=== PATIENT | male | born 1975 | race Caucasian/White ===

== ENCOUNTER 2016-10-04 19:30 | Emergency (ER) | payer OTHER ==
[~2016-10-04] VITALS: Ht 170.2 cm; Wt 63.0 kg
[2016-10-04 19:35] VITALS: Ht 170.2 cm; Wt 63.0 kg
[2016-10-04] MEDS ORDERED: NAPR-1169 PO (19:56)
[2016-10-04] MEDS ORDERED: CYCL5TAB PO (19:56)
[2016-10-04] MEDS ORDERED: KETOROLAC TROMETHAMINE 60 MG/2 ML VIAL IM STA (19:57)
[2016-10-04] MEDS ORDERED: MoRPHine SULFATE 10 MG/ML CARP/VIAL IM STA (19:57)
[2016-10-04] MEDS ORDERED: DEXAMETHASONE SOD INJ 10 MG/ML VIAL IM ONE (20:00)
--- NOTE | 2016-10-04 20:36 | DIAGNOSTIC IMAGING REPORT ---
LUMBAR SPINE 5 VIEWS HISTORY: Low back pain w/ bilateral radicular symptoms COMPARISON: None. FINDINGS: There is no fracture. No subluxation. Mild disc space narrowing and small endplate osteophytes at L5-S1. IMPRESSION: No fracture or subluxation within the lumbar spine. Mild degenerative disc disease at L5-S1. Electronically signed by: Arvin Laguerre M.D. 10/04/2016 8:35 PM Dictated Date/Time: 10/04/2016 8:34 PM
[2016-10-04] MEDS ORDERED: OXYC1TAB3 PO (20:43)
[2016-10-04] MEDS ORDERED: OXYCODONE IR HOME PACK PO ONE (20:45)
[2016-10-04 21:06] VITALS: BP 127/87; PULSE 81; TEMP 37.2; O2SAT 96
--- NOTE | 2016-10-04 22:45 | EMERGENCY ROOM VISIT NOTE ---
History First contact with patient: 19:49 Chief Complaint: BACK PAIN Stated Complaint: BACK PAIN, CAN BARLEY STAND History of Present Illness The patient is a 41 year old male who presents to the Emergency Room with complaints of lower back pain after lifting heavy metal yesterday. The patient reports that this happened at work at around 11:45 AM. The patient reports that he was seen at an Occupational Health office, and given a prescription for Flexeril 5 mg at bedtime, along with naproxen 500 mg twice a day and Biofreeze. The patient reports that his symptoms are not improving, and in fact or worsening. He now complains of pain radiating down both legs, left worse than right. He denies any lower extremity weakness, foot drop, saddle anesthesias or bladder/bowel difficulties/incontinence. The patient reports that he did injure his back at the same job approximately one year ago. According to the patient, he underwent some conservative physical therapy with a TENS unit and stretching. He currently rates his discomfort an 8 out of 10. Review of Systems 10 system review was performed and was negative except for pertinent positives and negatives as indicated in history of present illness Past Medical/Surgical History Medical Problems: (1) No significant past medical history Surgical Problems: (1) No history of previous surgery Family History FH: cancer FH: diabetes mellitus Social History Smoking Status: Current Every Day Smoker Alcohol Use: none Marital Status: single, in relationship Housing Status: lives with significant other Occupation Status: employed Current/Historical Medications Scheduled Cyclobenzaprine Hcl (Flexeril), 5 MG PO HS Naproxen (Naprosyn), 500 MG PO BID Scheduled PRN Oxycodone Ir (Roxicodone Ir), 1-2 TAB PO Q4H PRN for Pain Allergies Coded Allergies: No Known Allergies (Unverified , 10/04/16) Physical Exam Vital Signs Date Time Temp Pulse Resp B/P Pulse Ox O2 Delivery O2 Flow Rate FiO2 10/04/16 21:06 37.2 81 16 127/87 96 10/04/16 20:56 81 16 127/87 96 Room Air 10/04/16 19:35 37.2 98 20 131/96 97 Room Air Pain Rating (0-10): 5.0 Physical Exam CONSTITUTIONAL: Healthy and well nourished. Alert and oriented X 3 with positive affect. Patient appears in moderate discomfort from pain. HEENT: Normocephalic, atraumatic. Pupils equal, round and reactive. NECK: Full active range of motion without discomfort. RESPIRATORY: Clear to auscultation bilaterally with no wheezing, crackles, rhonchi or stridor. CARDIOVASCULAR: Regular rate and rhythm with no murmurs, rubs or gallops. GASTROINTESTINAL: Bowel sounds present in all quadrants. Soft and nontender to palpation. MUSCULOSKELETAL: Examination shows generalized tenderness to palpation of the lumbar paraspinous muscles and SI joints. Negative logroll. Negative sitting straight leg raise. Ankle plantar/dorsiflexion strength is 5 out of 5 and symmetric bilaterally. Patient is able to lift both legs off of the examination table. Pedal pulses are intact. INTEGUMENTARY: No rash or other significant dermatologic conditions noted. NEUROLOGIC: No focal neurologic deficits noted. Lower extremity deep tendon reflexes are 2+ and symmetric bilaterally. Medical Decision & Procedures ER Provider Diagnostic Interpretation: My interpretation of lumbar spine x-rays does not show any acute fractures, subluxations or lordotic reversal. Radiologist report is as follows: LUMBAR SPINE 5 VIEWS HISTORY: Low back pain w/ bilateral radicular symptoms COMPARISON: None. FINDINGS: There is no fracture. No subluxation. Mild disc space narrowing and small endplate osteophytes at L5-S1. IMPRESSION: No fracture or subluxation within the lumbar spine. Mild degenerative disc disease at L5-S1. Medications Administered Medications (Trade) Dose Ordered Sig/Chandana Route Start Time Stop Time Status Last Admin Dose Admin Morphine Sulfate (MoRPHine SULFATE INJ) 10 mg NOW STAT IM 10/04/16 19:57 10/04/16 19:59 DC 10/04/16 20:12 10 MG Ketorolac Tromethamine (Toradol Inj) 60 mg NOW STAT IM 10/04/16 19:57 10/04/16 19:59 DC 10/04/16 20:14 60 MG Dexamethasone Sodium Phosphate (Decadron Inj) 10 mg NOW ONCE IM 10/04/16 20:00 10/04/16 20:01 DC 10/04/16 20:13 10 MG Oxycodone HCl (Roxicodone Immediate Rel 5MG Home Pack) 1 homepack UD ONCE PO 10/04/16 20:45 10/04/16 20:46 DC 10/04/16 21:08 1 HOMEPACK ED Course Patient history and physical exam were performed. Nurse's notes were reviewed. Vital signs were reviewed and normal. The patient was administered IM morphine, Toradol and Decadron. X-rays of the lumbar spine were normal. The patient rated his discomfort a 5 out of 10 after his x-rays, and felt well enough to go home. The patient was instructed to increase his Flexeril dosing to 10 mg every 8 hours. He was also provided a home pack and prescription for OxyIR 5 mg as needed for breakthrough pain. No drinking alcohol or driving while taking OxyIR. He was instructed to continue follow-up with his Occupational Health office for further Worker's Compensation management. The patient was happy with plan of care, and voiced understanding of all discharge instructions. Medical Decision The patient does not have any history or clinical exam findings to suggest cauda equina syndrome that would warrant MRI studies at this time. His x-rays are not suggestive of acute fracture. Acute discitis is certainly possible. Impression Primary Impression: Lumbar radiculitis Additional Impressions: Work related injury Lumbar strain Departure Information Dispostion Home / Self-Care Condition FAIR Prescriptions Oxycodone Ir (Roxicodone Ir) 5 Mg Tab 1-2 TAB PO Q4H Y for Pain, #15 TAB For Initial Treatment Prov: Tyler Barba PA 10/04/16 Forms HOME CARE DOCUMENTATION FORM, IMPORTANT VISIT INFORMATION Patient Instructions My [facility] Additional Instructions Take your Flexeril 10 mg every 8 hours. You have been prescribed OxyIR as needed for worse pain. Do not drink alcohol or drive while taking OxyIR. Follow-up with your Occupational Health for further Worker's Compensation management. Problem Qualifiers Additional Impressions: Lumbar strain Encounter type: initial encounter Qualified Codes: S39.012A - Strain of muscle, fascia and tendon of lower back, initial encounter
== END 2016-10-04 21:07 | disposition home or self-care (01) ==
LOC: C.EDB 19:32 → C.EDD 21:07
DX: M54.16 Radiculopathy, lumbar region (principal); S39.012A Strain of muscle, fascia and tendon of lower back, initial encounter; X50.0XXA Overexertion from strenuous movement or load, initial encounter; Y93.89 Activity, other specified; Y99.0 Civilian activity done for income or pay; Y92.89 Other specified places as the place of occurrence of the external cause; F17.200 Nicotine dependence, unspecified, uncomplicated; Z83.3 Family history of diabetes mellitus

== ENCOUNTER 2017-10-23 07:21 | Emergency (ER) | payer SELFPAY ==
[~2017-10-23] VITALS: Ht 172.7 cm; Wt 62.4 kg
[~2017-10-23 07:21] MED LIST: CYCL5TAB PO; NAPR-1169 PO
[2017-10-23 07:23] VITALS: TEMP 37; Ht 172.7 cm; Wt 62.4 kg
--- NOTE | 2017-10-23 08:00 | EMERGENCY ROOM VISIT NOTE ---
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 According to pt was getting dressed, lifted R leg to put on pants and heard back pop. Pt dropped to the floor. Associated with difficulty walking, bending of getting up from a seated position. Denies any numbness/tingling, weakness, bowel or bladder incontinence. Reports going to PT for back injury which helped. Also had an MRI and was told it was normal. Review of Systems see below Constitutional: No fever Respiratory: No shortness of breath Cardiovascular: No chest pain Abdomen: No pain, No nausea, No vomiting, No diarrhea, No constipation Musculoskeletal: + problem reported (back pain ) Genitourinary - Male: No dysuria, No urinary incontinence Neurologic: No weakness, No numbness/tingling Past Medical/Surgical History Medical Problems: (1) No significant past medical history Surgical Problems: (1) No history of previous surgery Family History FH: cancer FH: diabetes mellitus Social History Smoking Status: Current Every Day Smoker Alcohol Use: none Marital Status: single, in relationship Housing Status: lives with significant other Occupation Status: employed Current/Historical Medications Scheduled Cyclobenzaprine Hcl (Flexeril), 5 MG PO HS Physical Exam Vital Signs Date Time Temp Pulse Resp B/P (MAP) Pulse Ox O2 Delivery O2 Flow Rate FiO2 10/23/17 09:04 68 20 121/84 97 Room Air 10/23/17 07:23 37.0 108 18 137/99 98 Room Air Physical Exam see below General Appearance: + moderate distress Head: normocephalic, atraumatic Eyes: normal inspection ENT: normal ENT inspection Neck: supple Respiratory/Chest: lungs clear, normal breath sounds Cardiovascular: regular rate, rhythm, no murmur Abdomen / GI: normal bowel sounds, non tender, soft Back: normal inspection, + paravertebral tenderness, + pertinent finding (L3 -L5 spinous processes TTP, L > R paraspinal muscle tenderness over lumbar region , negative b/l straight leg raising test) Extremities: normal inspection, + pedal edema Neurologic/Psych: + pertinent finding (intact sensation over L3-L5 region; strength 5/5 b/l thighs; leg strength testing limited due to pain) Medical Decision & Procedures Medications Administered Medications (Trade) Dose Ordered Sig/Chandana Route Start Time Stop Time Status Last Admin Dose Admin Ketorolac Tromethamine (Toradol Inj) 60 mg NOW STAT IM 10/23/17 08:18 10/23/17 08:19 DC 10/23/17 08:25 60 MG ED Course Pt evaluated in at 7:34 Medical Decision 42y/oM with hx of work related back injury 1 year ago presents with severe low back pain s/p hearing a pop while dressing this AM. No red flag signs such as paraesthesias, weakness, fever, bowel or bladder incontinence. Likely consistent with exacerbation of previous back injury/back strain vs. lumbar radiculopathy vs. discitis. Xray of lumbar spine consistent with L5-S1 mild degenerative changes, no fx/dislocation. Received pain medication, Toradol 30mg IV. Discharge with PCP follow up and Tylenol or ibuprofen for pain Impression Primary Impression: Lumbar strain Additional Impression: Work related injury Departure Information Referrals No Doctor, Assigned (PCP) Patient Instructions My [facility] Problem Qualifiers
[2017-10-23] MEDS ORDERED: KETOROLAC TROMETHAMINE 30 MG/ML VIAL IV STA (08:02)
[2017-10-23] MEDS ORDERED: KETOROLAC TROMETHAMINE 60 MG/2 ML VIAL IM STA (08:18)
--- NOTE | 2017-10-23 08:51 | DIAGNOSTIC IMAGING REPORT ---
L-SPINE MIN 4 VIEWS ROUTINE HISTORY: 42 years-old Male low back pain hx of injury acute low back pain COMPARISON: Lumbar spine radiographs 10/04/2016 TECHNIQUE: 5 views of lumbar spine FINDINGS: There are 5 nonrib-bearing lumbar type vertebral segments. No acute fracture, subluxation, spondylolysis or spondylolisthesis. Minimal intervertebral disc space narrowing with endplate spurring at L5-S1. IMPRESSION: 1. No acute fracture or subluxation. 2. Mild degenerative changes at L5-S1. The above report was generated using voice recognition software. It may contain grammatical, syntax or spelling errors. Electronically signed by: Julián Barnes M.D. 10/23/2017 8:50 AM Dictated Date/Time: 10/23/2017 8:49 AM
[2017-10-23 09:04] VITALS: BP 121/84; PULSE 68; O2SAT 97
--- NOTE | 2017-10-23 09:27 | EMERGENCY ROOM VISIT NOTE ---
History Report prepared by Summeribmely: Dar Shore Under the Supervision of: Dr. Bro Katz D.O. First contact with patient: 07:33 Chief Complaint: BACK PAIN Stated Complaint: SEVERE LOWER BACK PAIN History of Present Illness The patient is a 42 year old male who presents to the Emergency Room with complaints of constant low back pain beginning shortly prior to arrival. He states that he was lifting his right leg to put his pants on this morning when he suddenly heard a "pop" in his back. His pain began suddenly after this. 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 He took Flexeril for his pain which has helped a little. He denies loss of bowel or bladder continence, numbness, or weakness. Source of History: patient Onset: Shortly prior to arrival Position: back (lower) Timing: constant Modifying Factors (Relieving): other (Flexeril) Associated Symptoms: No weakness, No numbness Note: Negative: loss of bowel or bladder continence. Review of Systems See HPI for pertinent positives & negatives. A total of 10 systems reviewed and were otherwise negative. Past Medical & Surgical Medical Problems: (1) No significant past medical history Surgical Problems: (1) No history of previous surgery Family History FH: cancer FH: diabetes mellitus Social History Smoking Status: Current Every Day Smoker Alcohol Use: none Marital Status: single, in relationship Housing Status: lives with significant other Occupation Status: employed Current/Historical Medications Scheduled Cyclobenzaprine Hcl (Flexeril), 5 MG PO HS Allergies Coded Allergies: No Known Allergies (Unverified , 10/23/17) Physical Exam Vital Signs Date Time Temp Pulse Resp B/P (MAP) Pulse Ox O2 Delivery O2 Flow Rate FiO2 10/23/17 09:04 68 20 121/84 97 Room Air 10/23/17 07:23 37.0 108 18 137/99 98 Room Air Physical Exam CONSTITUTIONAL/VITAL SIGNS: Reviewed / noted above. GENERAL: Non-toxic in appearance. INTEGUMENTARY: Warm, dry, and [place]. HEAD: Normocephalic. EYES: without scleral icterus or trauma. ENT/OROPHARYNX: clear and moist. LYMPHADENOPATHY/NECK: Is supple without lymphadenopathy or meningismus. RESPIRATORY: Lungs clear and equal. CARDIOVASCULAR: Regular rate and rhythm. GI/ABDOMEN: Soft and nontender. No organomegaly or pulsatile mass. No rebound or guarding. Normal bowel sounds. EXTREMITIES: Warm and well perfused. BACK: No CVA tenderness. Tenderness to the low lumbar region. NEUROLOGICAL: Intact without focal deficits. PSYCHIATRIC: normal affect. MUSCULOSKELETAL: Normally developed with good muscle tone. Medical Decision & Procedures ER Provider Diagnostic Interpretation: Radiology results as stated below per my review and radiologist interpretation: L-SPINE MIN 4 VIEWS ROUTINE FINDINGS: There are 5 nonrib-bearing lumbar type vertebral segments. No acute fracture, subluxation, spondylolysis or spondylolisthesis. Minimal intervertebral disc space narrowing with endplate spurring at L5-S1. IMPRESSION: 1. No acute fracture or subluxation. 2. Mild degenerative changes at L5-S1. The above report was generated using voice recognition software. It may contain grammatical, syntax or spelling errors. Electronically signed by: Julián Barnes M.D. 10/23/2017 8:50 AM Medications Administered Medications (Trade) Dose Ordered Sig/Chandana Route Start Time Stop Time Status Last Admin Dose Admin Ketorolac Tromethamine (Toradol Inj) 60 mg NOW STAT IM 10/23/17 08:18 10/23/17 08:19 DC 10/23/17 08:25 60 MG ED Course 0734: Previous medical records were reviewed. The patient was evaluated in room B12B. A complete history and physical examination was performed. 0818: Ordered Toradol Inj 60 mg IM. 0930: On reevaluation, the patient is resting comfortably. I discussed the results and findings with the patient. He verbalized agreement of the treatment plan. The patient was discharged home. Medical Decision Differential considered includes cauda equina syndrome, conus medullaris, spinal cord compression syndrome, peripheral nerve compression, fractures or subluxations, intra-abdominal pathology such as abdominal aortic aneurysm or kidney stones, muscle strain, transverse myelitis, spinal cord injury. This is a 42-year-old male who presents to the ED with a chief complaint of a low back injury. The patient was seen with the resident. Details of the history as noted above. His exam revealed some mild tenderness to the lower back region in the soft tissue. X-rays of the lumbar region reveals some mild degenerative changes but otherwise nothing acute. The patient was treated with IM Toradol for his discomfort. He was told the results. He was told to take Tylenol Motrin as needed for pain. He was felt to be stable for discharge. Medication Reconcilliation Current Medication List: was personally reviewed by me Blood Pressure Screening Patient's blood pressure: Normal blood pressure Blood pressure disposition: Did not require urgent referral Impression Primary Impression: Low back strain Scribe Attestation The scribe's documentation has been prepared under my direction and personally reviewed by me in its entirety. I confirm that the note above accurately reflects all work, treatment, procedures, and medical decision making performed by me. Departure Information Dispostion Home / Self-Care Referrals No Doctor, Assigned (PCP) Patient Instructions Lumbosacral Strain, My [facility] Additional Instructions Take Tylenol or Motrin as needed for pain. Follow-up with your doctor for further care and evaluation in 1-2 days. Return to the emergency department for worsening or new symptoms or any concerns. You have been examined and treated today on an emergency basis only. This is not a substitute for, or an effort to provide, complete comprehensive medical care. It is impossible to recognize and treat all injuries or illnesses in a single emergency department visit. It is therefore important that you follow up closely with your doctor. Call as soon as possible for an appointment.
== END 2017-10-23 09:38 | disposition home or self-care (01) ==
LOC: C.EDB 07:22
DX: S39.012A Strain of muscle, fascia and tendon of lower back, initial encounter (principal); X50.1XXA Overexertion from prolonged static or awkward postures, initial encounter; Y92.019 Unspecified place in single-family (private) house as the place of occurrence of the external cause; F17.210 Nicotine dependence, cigarettes, uncomplicated